=== PATIENT | female | born 1985 | race Hispanic/Latino ===

== ENCOUNTER → 2023-07-14 | Outpatient (CLI) | payer BC | END | disposition home or self-care (01) | LOC: RAH 10:35 | PROVIDERS: ATTEND Internal Medicine | DX: Z12.31 Encounter for screening mammogram for malignant neoplasm of breast (principal) | CPT/HCPCS: 77067 ==

== ENCOUNTER → 2023-10-06 | Outpatient (CLI) | payer BC | END | disposition home or self-care (01) | LOC: RAH 09:53 | PROVIDERS: ATTEND Internal Medicine | DX: K76.0 Fatty (change of) liver, not elsewhere classified (principal); R10.11 Right upper quadrant pain; R07.1 Chest pain on breathing; M41.9 Scoliosis, unspecified | CPT/HCPCS: 76700 ==